=== PATIENT | female | born 1985 | race Caucasian/White ===

== ENCOUNTER 2021-04-22 19:29 | Emergency (ER) | payer OTHER ==
[~2021-04-22] VITALS: Ht 157.5 cm; Wt 59.0 kg
[2021-04-22 20:57] VITALS: BP 114/67
--- NOTE | 2021-04-23 08:25 | EKG ---
[place] [address] [address] [facility] [place] [address] ELECTROCARDIOGRAM REPORT Name: ADRIANNE CRISTA NICHOLS Room #: [place] SPRINGSCarmen#: [id number] Admission: 04/22/21 Attend Phys: Discharge: 04/22/21 Date of : 81 Report #: [id number] [facility] ED Test Date: 2021-04-22 Test Time: 19:44:15 Pat Name: CRISTA NICHOLS Department: Room: Gender: F Plaster Tender: CHANDNI : 1985 Requested By: Bernie Chappell Order Number: [id number] MD: Shawn Howard Measurements Intervals [place] Rate: 62 P: 30 CT: 125 QRS: 19 QRSD: 101 T: 9 QT: 415 QTc: 422 Interpretive Statements Sinus rhythm Baseline wander in lead(s) V4 No previous ECG available for comparison Electronically Signed On 04-23-2021 8:24:58 [employer] by Shawn Howard [email or web address] <ELECTRONICALLY SIGNED> By: Shawn Howard MD, [facility] 04/23/21 0824 194 43 Shawn Howard MD, FACC /EPI
== END 2021-04-22 21:03 | disposition home or self-care (01) ==
LOC: ER 19:29
DX: U07.1 COVID-19 (principal)